=== PATIENT | female | born 1990 | race Two or more races ===

== ENCOUNTER 2025-03-17 13:08 | Outpatient (AMB) | payer MEDICAID, SELFPAY ==
[2025-03-17 13:23] VITALS: BP 116/76; PULSE 90; RESP 18; TEMP 36.7; O2SAT 98; BMI 21.4
--- NOTE | 2025-03-17 13:23 | OBCLNT_ITS ---
Vital Signs 03/17/25 13:23 Height 1.65 m Height Method Stated Weight 58.57 kg Weight Measurement Method Standing Scale BMI 21.4 BP 116/76 Blood Pressure Source Automatic Cuff Blood Pressure Location Left Upper Arm Position Sitting Respiration 18 Pulse 90 Pulse Source Monitor Temp 98.0 F Temp Source Oral Pulse Oximetry (%) 98 Oxygen Delivery Method Room Air Allergies/Home Meds Allergies & Medications Allergies No Known Allergies Allergy (Verified 03/17/25 13:24) Medication Reconciliation No Known Home Medications 03/17/25 [History Confirmed 03/17/25] Intake Visit Data Collection New Patient or Established: New Patient (never been to [facility]) Reason for Visit:: INITIAL CARE Seen by Clinical Staff ONLY (RN/MA): No Bridge Attacher Required: No Do You Feel Safe at Home: Yes Authorities Contacted: N/A PCP or OBGYN visit in last 3 months: No Hx Now: Yes Are you currently on any form of Control: No Pain Present Currently: No Pain Scale Used: El-Zhang/Numerical Pain scale:: 0 Smoking Status Smoking Status: Never smoker Questionnaires Covid-19 Vaccine Questionnaire Has patient been vacinated for Covid-19 Have you been vacinated for Covid-19: Yes PHQ-9 PHQ-2 Over the last 2 weeks, how often have you been bothered by any of the following problems? 1. Little interest or pleasure in doing things: not at all 2. Feeling down, depressed, or hopeless: not at all Total score: 0 PHQ-9 3. Trouble falling or staying asleep, or sleeping too much: Not at all 4. Feeling tired or having little energy: Not at all 5. Poor appetite or overeating: Not at all 6. Feeling bad about yourself - or that you are a failure or have let yourself or your family down: Not at all 7. Trouble concentrating on things, such as reading the newspaper or watching television: Not at all 8. Moving or speaking so slowly that other people could have noticed? - Or the opposite - being so fidgety or restless that you have been moving around a lot more than usual: not at all 9. Thoughts that you would be better off or of hurting yourself in some way: Not at all Total score: 0 Source: Developed by Drs. Mihai LIva Powell Kurt Kroenke and colleagues, with an educational jeannine from [employer]. Depression screen completed yes Social History Living Situation History Marital Status: Lives With: Children Housing: House Housing Other:: Has 17 and 13 year old girls Tobacco History Smoking Status: Never smoker Second Hand Smoke Exposure: No Alcohol History Alcohol Intake: Never Substance Use History Substance Use: +MJ stopped with + test Domestic Abuse History Do You Feel Safe at Home: Yes History of Present Illness HPI Narrative The patient is a 34 y/o who presents for a new OB visit. Her daughters are 17 and 13 years old. 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 Denies complications 06/2012 female 7 lbs 14 oz at [place]. Denies complications Other Relevant History: Denies chronic medical problems including HTN, DM or Asthma OB Initial Visit OB Flowsheet OB Flowsheet Initial Weight: Not Recorded Date -?-?-?-?-?-?-?-?-?-?-?-?- EGA Weight BP Alb Glu CTX Pres Fundal ht FHR Mov Dilation Station Effacement Hx Notes Visit Note 03/17/25 -?-?-?--?-?-?-?-?-?-?-?-?- 19w 0d 58.57 kg 116/76 20 145 active +FM No UCs or LOF Came from [facility] with only a proof of . Ordered all C labs, NIPT and Level II US Menstrual History Menstrual reliability: definite Flow: normal Menstrual regularity: regular Monthly: Yes Age at menarche: 11 On control pills at conception: No Date of positive home test: 12/10/23 Associated symptoms (LMP): Reports fatigue and breast tenderness OB History : 3 Para: 2 # of Living Children: 2 Delivery History 1st : date: 05/15/08 sex: female Gestational age at delivery (weeks): 40 Delivery type: vaginal weight (lbs): 3118.448 g Delivery complications: NONE History of depression before or after : No 2nd : date: 07/18/12 sex: female Gestational age at delivery (weeks): 39 Delivery type: vaginal weight (lbs): 3572.04 g Delivery complications: NONE History of depression before or after : No Infection History & Risk Evaluation History of STDs: none Genetic Screening & History Genetic Screening/Teratology Counseling - Includes patient, baby's father, or anyone in either family with: 1. Patient's age 35 years or older as of estimated date of delivery: Yes 2. Thalassemia (Ecuadorean, Eritrean, Mediterranean, or Background); MCV less than 80: No 3. Neural Tube Defect (Meningomyelocele, Spina Bifida, or Anencephaly): No 4. Congenital Heart Defect: No 5. Down Syndrome: No 6. Abraham-Sachs (Ashkenazi Tenriism, Cajun, [place]): No 7. Wade Disease (Ashkenazi Tenriism): No 8. Familial Dysautonomia (Ashkenazi Tenriism): No 9. Sickle Cell Disease or Trait (): No 10. Hemophilia or other blood disorders: No 11. Muscular Dystrophy: No 12. Cystic Fibrosis: No 13. Qi's Chorea: No 14. Mental Retardation/Autism: No 15. Other inherited genetic or chromosomal disorder: No 16. Maternal Metabolic Disorder (EG,TYPE 1 Diabetes, PKU): No 17. Patient or baby's father had a child with defects not listed above: No 18. Recurrent loss or a stillbirth: No 19. Medications (including supplements, vitamins, herbs or otc drugs)/illicit/recreational drugs/alcohol since last menstrual period: No 20. Any other: No Infection History 1. Live with someone with TB or exposed to TB: No 2. Rash or viral illness since last menstrual period: No 3. Hepatitis B,C: No Other (see comments) Source: [employer] Review of Systems Constitutional Constitutional: Reports fatigue Endocrine Endocrine: Reports fatigue Office Procedures OB Clinic LOC & Office Proc's Nursing/Assessment Patient Status: Initial/New Patient OB Clinic Nursing Assessment: Medication Reconciliation, Update PMH in EMR and Vital Signs OB Clinic Coordination of Care: AMA, Complex Care and Chronic Disease 1-5, Consent,records obtained, informed consent, Education Simp Pt/Fam, Lab and Imaging orders, Results/Orders obtained and Staff clarify orders Special Needs: Heart tones New Patient Charge New Patient Point Assignment: [id number] New Patient Point Charge: CERTIFIED MEDICAL BILLER Level 4 ([id number]) Assessment & Plan Diagnosis / Problem List (1) : Status: Acute Qualifiers: Weeks of gestation: 19 weeks Qualified Code(s): Z3A.19 - 19 weeks gestation of Plan: NIPT and all PNC labs ordered. Level II US ordered (2) Advanced maternal age (AMA) in : Status: Acute Assessment and Plan: Baby ASA, Level II US and NIPT
== END 2025-03-17 13:40 | disposition home or self-care (01) ==
LOC: HODSOBC 13:08
PROVIDERS: PCP Obstetrics & Gynecology; Referring Provider Obstetrics & Gynecology; Supervising Provider Obstetrics & Gynecology; Visit Provider Obstetrics & Gynecology
DX: O09.522 Supervision of elderly multigravida, second trimester (principal); Z3A.19 19 weeks gestation of pregnancy
CPT/HCPCS: 99204; G0463

== ENCOUNTER 2025-04-14 09:17 | Outpatient (AMB) | payer MEDICAID, SELFPAY ==
[2025-04-14 09:21] VITALS: BP 97/63; PULSE 81; RESP 16; TEMP 36.6; O2SAT 99; BMI 35.6
--- NOTE | 2025-04-14 09:21 | OBCLNT_ITS ---
Vital Signs 04/14/25 09:21 Height 1.65 m Height Method Stated Weight 97.182 kg Weight Measurement Method Standing Scale BMI 35.6 BP 97/63 Blood Pressure Source Automatic Cuff Blood Pressure Location Left Upper Arm Position Sitting Respiration 16 Pulse 81 Pulse Source Monitor Temp 97.8 F Temp Source Oral Pulse Oximetry (%) 99 Oxygen Delivery Method Room Air Allergies/Home Meds Allergies & Medications Allergies No Known Allergies Allergy (Verified 04/14/25 09:32) Medication Reconciliation No Known Home Medications 03/17/25 [History Confirmed 04/14/25] Intake Visit Data Collection New Patient or Established: Established Patient (seen at [facility] within 3 years) Reason for Visit:: CARE Seen by Clinical Staff ONLY (RN/MA): No Test Fixture Designer Required: No Do You Feel Safe at Home: Yes Authorities Contacted: N/A PCP or OBGYN visit in last 3 months: Yes Hx Now: Yes Are you currently on any form of Control: No Pain Present Currently: No Pain Scale Used: El-Zhang/Numerical Pain scale:: 0 Smoking Status Smoking Status: Never smoker Questionnaires Covid-19 Vaccine Questionnaire Has patient been vacinated for Covid-19 Have you been vacinated for Covid-19: Yes PHQ-9 PHQ-2 Over the last 2 weeks, how often have you been bothered by any of the following problems? 1. Little interest or pleasure in doing things: not at all 2. Feeling down, depressed, or hopeless: not at all Total score: 0 PHQ-9 3. Trouble falling or staying asleep, or sleeping too much: Not at all 4. Feeling tired or having little energy: Not at all 5. Poor appetite or overeating: Not at all 6. Feeling bad about yourself - or that you are a failure or have let yourself or your family down: Not at all 7. Trouble concentrating on things, such as reading the newspaper or watching television: Not at all 8. Moving or speaking so slowly that other people could have noticed? - Or the opposite - being so fidgety or restless that you have been moving around a lot more than usual: not at all 9. Thoughts that you would be better off or of hurting yourself in some way: Not at all Total score: 0 Source: Developed by Iva FernandezW. Adan, Morris Montanez and colleagues, with an educational jeannine from [employer] 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 She is a new father the baby. He has 3 of his own children. Care OB Visit Log OB Flowsheet Initial Weight: Not Recorded Date -?-?-?-?-?-?-?-?-?-?-?-?- EGA Weight BP Alb Glu CTX Pres Fundal ht FHR Mov Dilation Station Effacement Hx Notes Visit Note 03/17/25 -?-?-?-?-?-?-?--?-?-?-?-?- 19w 0d 58.57 kg 116/76 20 145 active +FM No UCs or LOF Came from [facility] with only a proof of . Ordered all PNC labs, NIPT and Level II US 04/14/25 -?-?-?-?-?-?-?-?-?-?-?-?- 23w 0d 97.182 kg 97/63 active Reviewed all labs and NIPT with the patient. Need structural survey and this will be authorized. No vaginal bleeding, or loss of fluids good movement ISAAC Calculator Estimated Delivery Date Method Current WG Current Estimate 08/11/25 LMP (Certain) 23w 0d Expected Delivery Route/Plan -0-0-2 history of 11 and 15 years ago without complications. Delivered in [place]. 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 Visit Date: 03/17/25 Last Updated by: Luisa Cage (OB Clinic)MD AMA: Baby ASA, offered NIPT and will order Level II US Office Procedures OB Clinic LOC & Office Proc's Nursing/Assessment Patient Status: Established Patient OB Clinic Nursing Assessment: Medication Reconciliation, Update PMH in EMR and Vital Signs OB Clinic Coordination of Care: AMA, Complex Care and Chronic Disease 1-5, Consent,records obtained, informed consent, Education Simp Pt/Fam, Lab and Imaging orders, Results/Orders obtained and Staff clarify orders Special Needs: Heart tones Established Patient Charge Established Patient Point Assignment: 155 Established Patient Point Charge: EP Level 4 (120-155) Assessment & Plan Diagnosis / Problem List (1) Advanced maternal age (AMA) in : Status: Acute Plan: NIPT normal. Authorize for level 2 ultrasound. (2) : Status: Acute Qualifiers: Weeks of gestation: 23 weeks Qualified Code(s): Z3A.23 - 23 weeks gestation of Additional Plan Follow Up: 4 Weeks
== END 2025-04-14 09:59 | disposition home or self-care (01) ==
LOC: HODSOBC 09:17
PROVIDERS: Supervising Provider Obstetrics & Gynecology; Visit Provider Obstetrics & Gynecology
DX: O09.522 Supervision of elderly multigravida, second trimester (principal); Z3A.23 23 weeks gestation of pregnancy
CPT/HCPCS: 99214; G0463

== ENCOUNTER 2025-05-16 09:38 | Outpatient (AMB) | payer MEDICAID, SELFPAY ==
[2025-05-16 09:56] VITALS: BP 122/78; PULSE 90; RESP 16; TEMP 37.1; O2SAT 98; BMI 24.8
--- NOTE | 2025-05-16 09:56 | AMB.OBVISIT ---
Vital Signs 05/16/25 09:56 Height 1.65 m Height Method Stated Weight 67.642 kg Weight Measurement Method Standing Scale BMI 24.8 BP 122/78 Blood Pressure Source Automatic Cuff Blood Pressure Location Left Upper Arm Position Sitting Respiration 16 Pulse 90 Pulse Source Monitor Temp 98.7 F Temp Source Oral Pulse Oximetry (%) 98 Oxygen Delivery Method Room Air Allergies/Home Meds Allergies & Medications Allergies No Known Allergies Allergy (Verified 05/16/25 09:57) Medication Reconciliation No Known Home Medications 03/17/25 [History Confirmed 05/16/25] Intake Visit Data Collection New Patient or Established: Established Patient (seen at [facility] within 3 years) Reason for Visit:: OBC Seen by Clinical Staff ONLY (RN/MA): No 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 1. Little interest or pleasure in doing things: not at all 2. Feeling down, depressed, or hopeless: not at all Total score: 0 PHQ-9 3. Trouble falling or staying asleep, or sleeping too much: Not at all 4. Feeling tired or having little energy: Not at all 5. Poor appetite or overeating: Not at all 6. Feeling bad about yourself - or that you are a failure or have let yourself or your family down: Not at all 7. Trouble concentrating on things, such as reading the newspaper or watching television: Not at all 8. Moving or speaking so slowly that other people could have noticed? - Or the opposite - being so fidgety or restless that you have been moving around a lot more than usual: not at all 9. Thoughts that you would be better off or of hurting yourself in some way: Not at all Total score: 0 If you checked off any problems, how difficult have these problems made it for you to do your work, take care of things at home, or get along with other people?: not difficult at all Source: Developed by Drs. Mihai Win, Iva Arellano, Morris Montanez and colleagues, with an educational jeannine from [employer]. Depression screen completed yes Social History Living Situation History Lives With: Children Housing: House Housing Other:: Has 17 and 13 year old girls/ FOB has 3 kids Tobacco History Smoking Status: Never smoker Second Hand Smoke Exposure: No Alcohol History Alcohol Intake: Never Substance Use History Substance Use: +MJ stopped with + test Domestic Abuse History Do You Feel Safe at Home: Yes Care OB Visit Log OB Flowsheet Initial Weight: Not Recorded Date <del>?</del> EGA Weight BP Alb Glu CTX Pres Fundal ht FHR Mov Dilation Station Effacement Hx Notes Visit Note 03/17/25 <del>?</del> 19w 0d 58.57 kg 116/76 20 145 active +FM No UCs or LOF Came from [facility] with only a proof of . Ordered all PNC labs, NIPT and Level II US 04/14/25 <del>?</del> 23w 0d 97.182 kg 97/63 active Reviewed all labs and NIPT with the patient. Need structural survey and this will be authorized. No vaginal bleeding, or loss of fluids good movement 05/16/25 <del>?</del> 27w 4d 67.642 kg 122/78 occasional 28 149 active Patient reports good movement. She reports frequent cramping and pressure while at work. No vaginal bleeding or loss of fluids. Patient had a note for decreased lifting and bending and she still having pressure and cramping at work. Off work at this time. ISAAC Calculator Estimated Delivery Date Method Current WG Current Estimate 08/11/25 LMP (Certain) 27w 4d Expected Delivery Route/Plan -0-0-2 history of 11 and 15 years ago without complications. Delivered in [place]. New father of baby who has 3 children, 2 boys and a girl. 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 She is having cramping and pressure at work. Awaiting level 2 ultrasound at [facility] 05/22/2025. Labs reviewed with a normal glucose RPR is negative normal hemoglobin. 1 hour glucose was 129. 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 Visit Date: 03/17/25 Last Updated by: Luisa Cage (OB Clinic)MD AMA: Baby ASA, offered NIPT and will order Level II US Office Procedures OB Clinic LOC & Office Proc's Nursing/Assessment Patient Status: Established Patient OB Clinic Nursing Assessment: Medication Reconciliation, Update PMH in EMR and Vital Signs OB Clinic Coordination of Care: Education Complex Pt/Fam, Consent,records obtained, informed consent, Education Simp Pt/Fam, Lab and Imaging orders, Results/Orders obtained and Staff clarify orders Special Needs: Heart tones and Language special needs Established Patient Charge Established Patient Point Assignment: 130 Established Patient Point Charge: EP Level 4 (120-155) Assessment & Plan Diagnosis / Problem List (1) Advanced maternal age (AMA) in : Status: Acute Plan: For level 2 ultrasound. Normal NIPT. (2) : Status: Acute Qualifiers: Weeks of gestation: 28 weeks Qualified Code(s): Z3A.28 - 28 weeks gestation of
== END 2025-05-16 10:14 | disposition home or self-care (01) ==
LOC: HODSOBC 09:38
PROVIDERS: Supervising Provider Obstetrics & Gynecology; Visit Provider Obstetrics & Gynecology
DX: O09.522 Supervision of elderly multigravida, second trimester (principal); Z3A.27 27 weeks gestation of pregnancy
CPT/HCPCS: 99214; G0463

== ENCOUNTER 2025-06-13 10:41 | Outpatient (AMB) | payer MEDICAID, SELFPAY ==
[2025-06-13 11:04] VITALS: BP 131/78; PULSE 98; RESP 18; TEMP 36.2; O2SAT 98; BMI 25.2
--- NOTE | 2025-06-13 11:04 | OBCLNT_ITS ---
Vital Signs 06/13/25 11:04 Height 1.65 m Height Method Stated Weight 68.549 kg Weight Measurement Method Standing Scale BMI 25.2 BP 131/78 H Blood Pressure Source Automatic Cuff Blood Pressure Location Left Upper Arm Position Sitting Respiration 18 Pulse 98 Pulse Source Monitor Temp 97.2 F Temp Source Oral Pulse Oximetry (%) 98 Oxygen Delivery Method Room Air Allergies/Home Meds Allergies & Medications Allergies No Known Allergies Allergy (Verified 06/13/25 11:05) Medication Reconciliation No Known Home Medications 03/17/25 [History Confirmed 06/13/25] Intake Visit Data Collection New Patient or Established: Established Patient (seen at [facility] within 3 years) Reason for Visit:: OBC Seen by Clinical Staff ONLY (RN/MA): No Tearoom Host/Hostess Required: No Do You Feel Safe at Home: Yes Authorities Contacted: N/A PCP or OBGYN visit in last 3 months: Yes Date of Last PCP or OBGYN visit: 05/16/25 Hx Now: Yes Are you currently on any form of Control: No Pain Present Currently: No Pain Scale Used: El-Zhang/Numerical Pain scale:: 0 Smoking Status Smoking Status: Never smoker Questionnaires Covid-19 Vaccine Questionnaire Has patient been vacinated for Covid-19 Have you been vacinated for Covid-19: Yes PHQ-9 PHQ-2 Over the last 2 weeks, how often have you been bothered by any of the following problems? 1. Little interest or pleasure in doing things: not at all 2. Feeling down, depressed, or hopeless: not at all Total score: 0 PHQ-9 3. Trouble falling or staying asleep, or sleeping too much: Not at all 4. Feeling tired or having little energy: Not at all 5. Poor appetite or overeating: Not at all 6. Feeling bad about yourself - or that you are a failure or have let yourself or your family down: Not at all 7. Trouble concentrating on things, such as reading the newspaper or watching television: Not at all 8. Moving or speaking so slowly that other people could have noticed? - Or the opposite - being so fidgety or restless that you have been moving around a lot more than usual: not at all 9. Thoughts that you would be better off or of hurting yourself in some way: Not at all Total score: 0 If you checked off any problems, how difficult have these problems made it for you to do your work, take care of things at home, or get along with other people?: not difficult at all Source: Developed by Drs. Mihai Win, Iva Arellano, Morris Montanez and colleagues, with an educational jeannine from [employer]. Depression screen completed yes Social History Living Situation History Marital Status: Single Lives With: Children Housing: House Housing Other:: Has 17 and 13 year old girls/ FOB has 3 kids Tobacco History Smoking Status: Never smoker Second Hand Smoke Exposure: No Alcohol History Alcohol Intake: Never Substance Use History Substance Use: +MJ stopped with + test Domestic Abuse History Do You Feel Safe at Home: Yes Care OB Visit Log OB Flowsheet Initial Weight: Not Recorded Date -?-?-?-?-?-?-?-?-?-?-?-?- EGA Weight BP Alb Glu CTX Pres Fundal ht FHR Mov Dilation Station Effacement Hx Notes Visit Note 03/17/25 -?-?-?-?-?-?-?-?-?-?-?-?- 19w 0d 58.57 kg 116/76 20 145 active +FM No UCs or LOF Came from [facility] with only a proof of . Ordered all PNC labs, NIPT and Level II US 04/14/25 -?-?-?-?-?-?-?-?-?-?-?-?- 23w 0d 97.182 kg 97/63 active Reviewed all labs and NIPT with the patient. Need structural survey and this will be authorized. No vaginal bleeding, or loss of fluids good movement 05/16/25 -?-?-?-?-?-?-?-?-?-?-?-?- 27w 4d 67.642 kg 122/78 occasional 28 149 active Patient reports good movement. She reports frequent cramping and pressure while at work. No vaginal bleeding or loss of fluids. Patient had a note for decreased lifting and bending and she still having pressure and cramping at work. Off work at this time. 06/13/25 -?-?-?-?-?-?-?-?-?-?-?-?- 31w 4d 68.549 kg 131/78 occasional 32 145 active Good motion no contractions or loss of fluids. Present with father the baby. Patient is off work doing well. ISAAC Calculator Estimated Delivery Date Method Current WG Current Estimate 08/11/25 LMP (Certain) 31w 5d Other Estimates 08/10/25 Ultrasound #1 31w 6d Expected Delivery Route/Plan -0-0-2 history of 13 and 17 years ago without complications. Delivered in [place]. New father of baby who has 3 children, 2 boys and a girl. Specific Issue/Plans AMA on baby aspirin labs at [facility]: O+/antibody screen negative/rubella immune/RPR nonreactive/hepatitis B surface antigen negative/gonorrhea negative/chlamydia negative/urine culture negative/HIV negative/SMA negative/CF negative/hemoglobin A1c 5/hemoglobin 12/NIPT 46 XY Normal level 2 ultrasound 05/22/2025 [facility] Normal 1 hour glucose 129 Notes Visit Date: 06/13/25 Last Updated by: Luisa Cage (OB Clinic)MD Patient has a 17-year-old and 13-year-old daughter. Her new has 3 children. Reviewed normal anatomy scan from [facility] from 05/22/2025 with patient and her . 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 She is having cramping and pressure at work. Awaiting level 2 ultrasound at [facility] 05/22/2025. Labs reviewed with a normal glucose RPR is negative normal hemoglobin. 1 hour glucose was 129. 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 Visit Date: 03/17/25 Last Updated by: Luisa Fernández[facility] Clinic)MD AMA: Baby ASA, offered NIPT and will order Level II US Office Procedures OBC Clinic LOC & Office Proc's Nursing/Assessment Patient Status: Established Patient OB Clinic Nursing Assessment: Medication Reconciliation, Update PMH in EMR and Vital Signs OB Clinic Coordination of Care: Consent,records obtained, informed consent, Education Simp Pt/Fam and Staff clarify orders Special Needs: Heart tones Established Patient Charge Established Patient Point Assignment: 90 Established Patient Point Charge: EP Level 3 (80-115) Assessment & Plan Diagnosis / Problem List (1) Advanced maternal age (AMA) in : Status: Acute Plan: On baby aspirin. Normal NIPT. Normal level 2 ultrasound. (2) : Status: Acute Qualifiers: Weeks of gestation: 32 weeks Qualified Code(s): Z3A.32 - 32 weeks gestation of
== END 2025-06-13 12:03 | disposition home or self-care (01) ==
LOC: HODSOBC 10:41
PROVIDERS: Supervising Provider Obstetrics & Gynecology; Visit Provider Obstetrics & Gynecology
DX: O09.523 Supervision of elderly multigravida, third trimester (principal); Z3A.31 31 weeks gestation of pregnancy
CPT/HCPCS: 99213; G0463

== ENCOUNTER 2025-07-01 09:15 | Outpatient (AMB) | payer MEDICAID, SELFPAY ==
--- NOTE | 2025-07-01 09:18 | OBCLNT_ITS ---
Vital Signs 07/01/25 09:19 Height 1.65 m Height Method Stated Weight 72.178 kg Weight Measurement Method Standing Scale BMI 26.5 BP 117/85 H Blood Pressure Source Automatic Cuff Blood Pressure Location Left Upper Arm Position Sitting Respiration 14 Pulse 77 Pulse Source Monitor Temp 97.8 F Temp Source Oral Pulse Oximetry (%) 99 Oxygen Delivery Method Room Air Allergies/Home Meds Allergies & Medications Allergies No Known Allergies Allergy (Verified 07/01/25 09:28) Medication Reconciliation No Known Home Medications 03/17/25 [History Confirmed 07/01/25] Intake Visit Data Collection New Patient or Established: Established Patient (seen at [facility] within 3 years) Reason for Visit:: CARE Seen by Clinical Staff ONLY (RN/MA): No Food Aide Required: No Do You Feel Safe at Home: Yes Authorities Contacted: N/A PCP or OBGYN visit in last 3 months: Yes Hx Now: Yes Are you currently on any form of Control: No Pain Present Currently: No Pain Scale Used: El-Zhang/Numerical Pain scale:: 0 Smoking Status Smoking Status: Never smoker Immunizations Flu Vaccine in the Last 12 Months: Yes Flu Vaccine Exclusion Criteria: Already Received Questionnaires Covid-19 Vaccine Questionnaire Has patient been vacinated for Covid-19 Have you been vacinated for Covid-19: Yes PHQ-9 PHQ-2 Over the last 2 weeks, how often have you been bothered by any of the following problems? 1. Little interest or pleasure in doing things: not at all 2. Feeling down, depressed, or hopeless: not at all Total score: 0 PHQ-9 3. Trouble falling or staying asleep, or sleeping too much: Not at all 4. Feeling tired or having little energy: Not at all 5. Poor appetite or overeating: Not at all 6. Feeling bad about yourself - or that you are a failure or have let yourself or your family down: Not at all 7. Trouble concentrating on things, such as reading the newspaper or watching television: Not at all 8. Moving or speaking so slowly that other people could have noticed? - Or the opposite - being so fidgety or restless that you have been moving around a lot more than usual: not at all 9. Thoughts that you would be better off or of hurting yourself in some way: Not at all Total score: 0 Source: Developed by Drs. Mihai Win, Iva Arellano, Morris Montanez and colleagues, with an educational jeannine from [employer]. Depression screen completed yes Social History Living Situation History Lives With: Children Housing: House Housing Other:: Has 17 and 13 year old girls/ FOB has 3 kids Tobacco History Smoking Status: Never smoker Second Hand Smoke Exposure: No Alcohol History Alcohol Intake: Never Substance Use History Substance Use: +MJ stopped with + test Domestic Abuse History Do You Feel Safe at Home: Yes Care OB Visit Log OB Flowsheet Initial Weight: Not Recorded Date -?-?-?-?-?-?-?-?-?-?-?-?- EGA Weight BP Alb Glu CTX Pres Fundal ht FHR Mov Dilation Station Effacement Hx Notes Visit Note 03/17/25 -?-?-?-?-?-?-?-?-?-?-?-?- 19w 0d 58.57 kg 116/76 20 145 active +FM No UCs or LOF Came from [facility] with only a proof of . Ordered all PNC labs, NIPT and Level II US 04/14/25 -?-?-?-?-?-?-?-?-?-?-?-?- 23w 0d 97.182 kg 97/63 active Reviewed all labs and NIPT with the patient. Need structural survey and this will be authorized. No vaginal bleeding, or loss of fluids good movement 05/16/25 -?-?-?-?-?-?-?-?-?-?-?-?- 27w 4d 67.642 kg 122/78 occasional 28 149 active Patient reports good movement. She reports frequent cramping and pressure while at work. No vaginal bleeding or loss of fluids. Patient had a note for decreased lifting and bending and she still having pressure and cramping at work. Off work at this time. 06/13/25 -?-?-?-?-?-?-?-?-?-?-?-?- 31w 4d 68.549 kg 131/78 occasional 32 145 active Good motion no contractions or loss of fluids. Present with father the baby. Patient is off work doing well. 07/01/25 -?-?-?-?-?-?-?-?-?-?-?-?- 34w 1d 72.178 kg 117/85 occasional cephalic 34 145 active Good movement. Denies contractions, leaking, bleeding Follow-up [facility] appointment July 08. Discussed kick count. labor precautions. Increase fluids. Continue vitamins. Patient declined Tdap ISAAC Calculator Estimated Delivery Date Method Current WG Current Estimate 08/11/25 LMP (Certain) 34w 1d Other Estimates 08/10/25 Ultrasound #1 34w 2d Expected Delivery Route/Plan -0-0-2 history of 13 and 17 years ago without complications. Shamika garcia in [place]. New father of baby who has 3 children, 2 boys and a girl. Specific Issue/Plans AMA on baby aspirin labs at [facility]: O+/antibody screen negative/rubella immune/RPR nonreactive/hepatitis B surface antigen negative/gonorrhea negative/chlamydia negative/urine culture negative/HIV negative/SMA negative/CF negative/hemoglobin A1c 5/hemoglobin 12/NIPT 46 XY Normal level 2 ultrasound 05/22/2025 [facility] Normal 1 hour glucose 129 Notes Visit Date: 07/01/25 Last Updated by: Nirali Ureña CNM OB panel: O+,abs-, rpr;;nr, rub imm, hbsag-, hiv-, gc/ct- 1 hr gtt wnl, HC-. NIPT/carrier screen- Visit Date: 06/13/25 Last Updated by: Luisa Cage (OB Clinic)MD Patient has a 17-year-old and 13-year-old daughter. Her new has 3 children. Reviewed normal anatomy scan from [facility] from 05/22/2025 with patient and her . 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 She is having cramping and pressure at work. Awaiting level 2 ultrasound at [facility] 05/22/2025. Labs reviewed with a normal glucose RPR is negative normal hemoglobin. 1 hour glucose was 129. 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 Visit Date: 03/17/25 Last Updated by: Luisa Cage (OB Clinic)MD AMA: Baby ASA, offered NIPT and will order Level II US Office Procedures OBC Clinic LOC & Office Proc's Nursing/Assessment Patient Status: Established Patient OB Clinic Nursing Assessment: Medication Reconciliation, Update PMH in EMR and Vital Signs OB Clinic Coordination of Care: Complex Care and Chronic Disease 1-5, Consent,records obtained, informed consent, Education Simp Pt/Fam, 1 Ins Authorization, Lab and Imaging orders, Results/Orders obtained and Staff clarify orders Special Needs: Heart tones Established Patient Charge Established Patient Point Assignment: 150 Established Patient Point Charge: EP Level 4 (120-155) Assessment & Plan Diagnosis / Problem List (1) Advanced maternal age (AMA) in : Status: Acute (2) Encounter for supervision of high risk in third trimester, antepartum: Status: Acute Plan Discussed labor precautions. Kick counts twice a day. Reviewed signs and symptoms of labor. Follow-up [facility] July 08. Return in 2 weeks OB check and GBS Additional Plan Follow Up: 2 Weeks (obc/gbs)
[2025-07-01 09:19] VITALS: BP 117/85; PULSE 77; RESP 14; TEMP 36.6; O2SAT 99; BMI 26.5
== END 2025-07-01 10:04 | disposition home or self-care (01) ==
LOC: HODSOBC 09:15
PROVIDERS: Supervising Provider Advanced Practice Midwife; Visit Provider Advanced Practice Midwife
DX: O09.523 Supervision of elderly multigravida, third trimester (principal); Z3A.34 34 weeks gestation of pregnancy; Z28.21 Immunization not carried out because of patient refusal
CPT/HCPCS: 99214; G0463

== ENCOUNTER 2025-07-18 10:36 | Outpatient (AMB) | payer MEDICAID, SELFPAY ==
[2025-07-18 10:57] VITALS: BP 123/89; PULSE 86; RESP 18; TEMP 36.9; O2SAT 98; BMI 27.1
--- NOTE | 2025-07-18 10:57 | OBCLNT_ITS ---
Vital Signs 07/18/25 10:57 Height 1.65 m Height Method Stated Weight 73.992 kg Weight Measurement Method Standing Scale BMI 27.1 BP 123/89 H Blood Pressure Source Automatic Cuff Blood Pressure Location Right Upper Arm Position Sitting Respiration 18 Pulse 86 Pulse Source Monitor Temp 98.4 F Temp Source Temporal Artery Scan Pulse Oximetry (%) 98 Oxygen Delivery Method Room Air Allergies/Home Meds Allergies & Medications Allergies No Known Allergies Allergy (Verified 07/18/25 10:58) Medication Reconciliation No Known Home Medications 03/17/25 [History Confirmed 07/18/25] Immunizations Immunizations Flu Vaccine in the Last 12 Months: No Flu Vaccine Exclusion Criteria: Refused by Patient Care OB Visit Log OB Flowsheet Initial Weight: Not Recorded Date -?-?-?-?-?-?-?-?-?-?-?-?- EGA Weight BP Alb Glu CTX Pres Fundal ht FHR Mov Dilation Station Effacement Hx Notes Visit Note 03/17/25 -?-?-?-?-?-?-?-?-?-?-?-?- 19w 0d 58.57 kg 116/76 20 145 active +FM No UCs or LOF Came from [facility] with only a proof of . Ordered all PNC labs, NIPT and Level II US 04/14/25 -?-?-?-?-?-?-?-?-?-?-?-?- 23w 0d 97.182 kg 97/63 active Reviewed all labs and NIPT with the patient. Need structural survey and this will be authorized. No vaginal bleeding, or loss of fluids good movement 05/16/25 -?-?-?-?-?-?-?-?-?-?-?-?- 27w 4d 67.642 kg 122/78 occasional 28 149 active Patient reports good movement. She reports frequent cramping and pressure while at work. No vaginal bleeding or loss of fluids. Patient had a note for decreased lifting and bending and she still having pressure and cramping at work. Off work at this time. 06/13/25 -?-?-?-?-?-?-?-?-?-?-?-?- 31w 4d 68.549 kg 131/78 occasional 32 145 active Good motion no contractions or loss of fluids. Present with father the baby. Patient is off work doing well. 07/01/25 -?-?-?-?-?-?-?-?-?-?-?-?- 34w 1d 72.178 kg 117/85 occasional cephalic 34 145 active Good movement. Denies contractions, leaking, bleeding Follow-up [facility] appointment July 08. Discussed kick count. labor precautions. Increase fluids. Continue vitamins. Patient declined Tdap 07/18/25 -?-?-?-?-?-?-?-?-?-?-?-?- 36w 4d 73.992 kg 123/89 occasional cephalic 36 145 active Fetus active. Denies leaking, bleeding, contractions GBS today. Discussed labor precautions. Kick count reviewed. Discussed danger signs symptoms ER precautions. Return in a week OB check ISAAC Calculator Estimated Delivery Date Method Current WG Current Estimate 08/11/25 LMP (Certain) 36w 4d Other Estimates 08/10/25 Ultrasound #1 36w 5d 08/11/25 Ultrasound #2 36w 4d 08/11/25 Manual 36w 4d final isaac: 07/28 01/19, EFW 50% Expected Delivery Route/Plan -0-0-2 history of 13 and 17 years ago without complications. Delivered in [place]. New father of baby who has 3 children, 2 boys and a girl. Specific Issue/Plans AMA on baby aspirin labs at [facility]: O+/antibody screen negative/rubella immune/RPR nonreac tive/hepatitis B surface antigen negative/gonorrhea negative/chlamydia negative/urine culture negative/HIV negative/SMA negative/CF negative/hemoglobin A1c 5/hemoglobin 12/NIPT 46 XY Normal level 2 ultrasound 05/22/2025 [facility] Normal 1 hour glucose 129 Notes Visit Date: 07/01/25 Last Updated by: Nirali Ureña CNM OB panel: O+,abs-, rpr;;nr, rub imm, hbsag-, hiv-, gc/ct- 1 hr gtt wnl, HC-. NIPT/carrier screen- Visit Date: 06/13/25 Last Updated by: Luisa Cage (OB Clinic)MD Patient has a 17-year-old and 13-year-old daughter. Her new has 3 children. Reviewed normal anatomy scan from [facility] from 05/22/2025 with patient and her . 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 She is having cramping and pressure at work. Awaiting level [address] [facility] 05/22/2025. Labs reviewed with a normal glucose RPR is negative normal hemoglobin. 1 hour glucose was 129. 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 Visit Date: 03/17/25 Last Updated by: Luisa Cage (OB Clinic)MD AMA: Baby ASA, offered NIPT and will order Level II US Office Procedures OBC Clinic LOC & Office Proc's Nursing/Assessment Patient Status: Established Patient OB Clinic Nursing Assessment: Medication Reconciliation, Update PMH in EMR and Vital Signs OB Clinic Coordination of Care: Complex Care and Chronic Disease 1-5, Education Complex Pt/Fam, Consent,records obtained, informed consent, Lab and Imaging orders, Results/Orders obtained and Staff clarify orders Special Needs: Heart tones Miscellaneous Interventions: Culture Specimen Collection Established Patient Charge Established Patient Point Assignment: 155 Established Patient Point Charge: EP Level 4 (120-155) Assessment & Plan Diagnosis / Problem List (1) Encounter for supervision of high risk in third trimester, antepartum: Status: Acute Plan GBS today. Discussed labor precautions. Kick counts twice a day. Discussed danger signs symptoms. Return week OB check Additional Plan Follow Up: 1 Week (obc)
== END 2025-07-18 11:10 | disposition home or self-care (01) ==
LOC: HODSOBC 10:36
PROVIDERS: Supervising Provider Advanced Practice Midwife; Visit Provider Advanced Practice Midwife
DX: O09.523 Supervision of elderly multigravida, third trimester (principal); Z3A.36 36 weeks gestation of pregnancy; Z36.85 Encounter for antenatal screening for Streptococcus B; Z28.21 Immunization not carried out because of patient refusal
CPT/HCPCS: 99214; G0463

== ENCOUNTER 2025-07-28 09:58 | Outpatient (AMB) | payer MEDICAID, SELFPAY ==
--- NOTE | 2025-07-28 10:00 | AMB.OBPNC ---
Vital Signs 07/28/25 10:07 Height 1.65 m Height Method Stated Weight 75.977 kg Weight Measurement Method Standing Scale BMI 27.8 BP 142/93 H Blood Pressure Source Automatic Cuff Blood Pressure Location Left Upper Arm Position Sitting Respiration 18 Pulse 80 Pulse Source Monitor Temp 98.2 F Temp Source Oral Pulse Oximetry (%) 98 Oxygen Delivery Method Room Air Allergies/Home Meds Allergies & Medications Allergies No Known Allergies Allergy (Verified 07/28/25 10:00) Medication Reconciliation No Known Home Medications 03/17/25 [History Confirmed 07/28/25] Immunizations Immunizations Flu Vaccine in the Last 12 Months: No Flu Vaccine Exclusion Criteria: No Exclusion Criteria Care OB Visit Log OB Flowsheet Initial Weight: Not Recorded Date <del>?</del> EGA Weight BP Alb Glu CTX Pres Fundal ht FHR Mov Dilation Station Effacement Hx Notes Visit Note 03/17/25 <del>?</del> 19w 0d 58.57 kg 116/76 20 145 active +FM No UCs or LOF Came from [facility] with only a proof of . Ordered all PNC labs, NIPT and Level II US 04/14/25 <del>?</del> 23w 0d 97.182 kg 97/63 active Reviewed all labs and NIPT with the patient. Need structural survey and this will be authorized. No vaginal bleeding, or loss of fluids good movement 05/16/25 <del>?</del> 27w 4d 67.642 kg 122/78 occasional 28 149 active Patient reports good movement. She reports frequent cramping and pressure while at work. No vaginal bleeding or loss of fluids. Patient had a note for decreased lifting and bending and she still having pressure and cramping at work. Off work at this time. 06/13/25 <del>?</del> 31w 4d 68.549 kg 131/78 occasional 32 145 active Good motion no contractions or loss of fluids. Present with father the baby. Patient is off work doing well. 07/01/25 <del>?</del> 34w 1d 72.178 kg 117/85 occasional cephalic 34 145 active Good movement. Denies contractions, leaking, bleeding Follow-up [facility] appointment July 08. Discussed kick count. labor precautions. Increase fluids. Continue vitamins. Patient declined Tdap 07/18/25 <del>?</del> 36w 4d 73.992 kg 123/89 occasional cephalic 36 145 active Fetus active. Denies leaking, bleeding, contractions GBS today. Discussed labor precautions. Kick count reviewed. Discussed danger signs symptoms ER precautions. Return in a week OB check 07/28/25 <del>?</del> 38w 0d 75.977 kg 142/93 occasional cephalic 38 145 active Reports good movement. Denies leaking, bleeding, contractions. Denies headache, blurred vision, epigastric pain. Reflexes were 2+ no clonus. Protein in the urine was negative and negative for nitrites Discussed PIH signs symptoms and precautions. Check blood pressure. Discussed labor precautions and kick count. I sent patient to labor and delivery for PIH workup. Return in week OB check ISAAC Calculator Estimated Delivery Date Method Current WG Current Estimate 08/11/25 LMP (Certain) 38w 0d Other Estimates 08/10/25 Ultrasound #1 38w 1d 08/11/25 Ultrasound #2 38w 0d 08/11/25 Manual 38w 0d final isaac: 08/11/25, EFW 50% Expected Delivery Route/Plan -0-0-2 history of 13 and 17 years ago without complications. Delivered in [place]. New father of baby who has 3 children, 2 boys and a girl. Specific Issue/Plans AMA on baby aspirin labs at [facility]: O+/antibody screen negative/rubella immune/RPR nonreactive/hepatitis B surface antigen negative/gonorrhea negative/chlamydia negative/urine culture negative/HIV negative/SMA negative/CF negative/hemoglobin A1c 5/hemoglobin 12/NIPT 46 XY Normal level 2 ultrasound 05/22/2025 [facility] Normal 1 hour glucose 129 Notes Visit Date: 07/28/25 Last Updated by: Nirali Ureña CNM GBS- 07/19/25 Visit Date: 07/01/25 Last Updated by: Nirali Ureña CNM OB panel: O+,abs-, rpr;;nr, rub imm, hbsag-, hiv-, gc/ct- 1 hr gtt wnl, HC-. NIPT/carrier screen- Visit Date: 06/13/25 Last Updated by: Luisa Cage (OB Clinic)MD Patient has a 17-year-old and 13-year-old daughter. Her new has 3 children. Reviewed normal anatomy scan from [facility] from 05/22/2025 with patient and her . 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 She is having cramping and pressure at work. Awaiting level 2 ultrasound at [facility] 05/22/2025. Labs reviewed with a normal glucose RPR is negative normal hemoglobin. 1 hour glucose was 129. 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 Visit Date: 03/17/25 Last Updated by: Luisa Cage (OB Clinic)MD AMA: Baby ASA, offered NIPT and will order Level II US Office Procedures OBC Clinic LOC & Office Proc's Nursing/Assessment Patient Status: Established Patient OB Clinic Nursing Assessment: Medication Reconciliation, Update PMH in EMR and Vital Signs OB Clinic Coordination of Care: Consent,records obtained, informed consent, Education Simp Pt/Fam, Lab and Imaging orders, Results/Orders obtained and Staff clarify orders Special Needs: Heart tones Established Patient Charge Established Patient Point Assignment: 110 Established Patient Point Charge: EP Level 3 (80-115) Assessment & Plan Diagnosis / Problem List (1) Encounter for supervision of high risk in third trimester, antepartum: Status: Acute Plan Patient to labor and delivery for PIH workup. Discussed labor precautions. Kick count twice a day. Discussed PIH precautions and symptoms. Return Wegovy check Additional Plan Follow Up: 1 Week (obc)
[2025-07-28 10:07] VITALS: BP 142/93; PULSE 80; RESP 18; TEMP 36.8; O2SAT 98; BMI 27.8
== END 2025-07-28 10:23 | disposition home or self-care (01) ==
LOC: HODSOBC 09:58
PROVIDERS: Supervising Provider Advanced Practice Midwife; Visit Provider Advanced Practice Midwife
DX: O09.523 Supervision of elderly multigravida, third trimester (principal); Z3A.38 38 weeks gestation of pregnancy
CPT/HCPCS: 99213; G0463

== ENCOUNTER 2025-07-28 10:45 | Observation (INO) | payer MEDICAID, SELFPAY ==
[2025-07-28 10:59] VITALS: BP 120/73; PULSE 87; RESP 18; RESP 99; TEMP 36.7; BMI 28.1
[2025-07-28 11:05] VITALS: BP 128/81; PULSE 97
[2025-07-28 11:07] VITALS: BP 134/80; PULSE 86
[2025-07-28 11:17] VITALS: BP 138/81; PULSE 86
[2025-07-28 11:27] VITALS: BP 132/75; PULSE 80
[2025-07-28 11:27] LABS: Collection Type, Urine Clean Catch
[2025-07-28 11:32] LABS: Basophils # (Auto) 0.1 Thou/mm3 (0.0-0.2); Basophils % (Auto) 0 % (0-2.5); Eosinophils # (Auto) 0.2 Thou/mm3 (0.0-0.5); Eosinophils % (Auto) 2 % (0-10); Hematocrit 32.8 % (36.0-46.0); Hemoglobin 11.5 g/dL (12.0-16.0); Immature Granulocytes Auto 0.04 Thou/mm3 (0.00-0.00); Lymphocytes # (Auto) 2.0 Thou/mm3 (1.0-4.8); Lymphocytes % (Auto) 18 % (10-50); Mean Corpuscular HGB Conc 35.1 g/dl (31.0-37.0); Mean Corpuscular Hemoglobin 33.3 pg (25.0-35.0); Mean Corpuscular Volume 95 fL (80-100); Monocytes # (Auto) 0.5 Thou/mm3 (0.0-0.8); Monocytes % (Auto) 5 % (0-12); Neutrophils # (Auto) 8.2 Thou/mm3 (1.8-7.7); Neutrophils % (Auto) 74 % (37-80); Nucleated Red Blood Cell # 0.00 Thou/mm3 (0.00-0.00); Nucleated Red Blood Cell % 0 /100 WBC (0); Platelet Count 103 Thou/mm3 (140-440); RDW Standard Deviation 47.5 fL (36.4-46.3); Red Blood Count 3.45 Miln/mm3 (4.00-5.20); White Blood Count 11.1 Thou/mm3 (3.6-11.0)
[2025-07-28 11:37] VITALS: BP 120/73; PULSE 87
[2025-07-28 11:46] LABS: Alanine Aminotransferase 12 U/L (10-49); Albumin, Serum 3.8 gm/dL (3.5-5.0); Albumin/Globulin Ratio 1.4 (1.2-2.2); Alkaline Phosphatase 149 U/L (46-116); Anion Gap 11 (7-16); Aspartate Amino Transferase 22 U/L (0-34); BUN/Creatinine Ratio 8 Ratio (12-20); Bilirubin,Total 0.2 mg/dL (0.3-1.2); Blood Urea Nitrogen 7 mg/dL (9-23); Calcium 9.4 mg/dL (8.3-10.6); Calcium (Corrected) 9.6 mg/dL (8.5-10.1); Carbon Dioxide 19.4 mMol/L (20.0-31.0); Chloride 109 mMol/L (98-107); Creatinine (Component) 0.9 mg/dL (0.6-1.3); Estimated Creatinine Clearance 88.5 mL/min (>60); Globulin 2.8 gm/dL (2.3-3.5); Glucose 95 mg/dL (74-106); Osmolality,Calculated 275 (275-295); Potassium 4.0 mMol/L (3.4-5.1); Sodium 139 mMol/L (136-145); Total Protein 6.6 gm/dL (5.7-8.2); Uric Acid 6.3 mg/dL (3.1-7.8); eGFR > 60 See Note
[2025-07-28 11:53] LABS: LDH (Lactate Dehydrogenase) 193 U/L (120-246)
[2025-07-28 12:09] LABS: Fibrinogen 538 mg/dL (175-375); INR 0.9 (0.9-1.3); Partial Thromboplastin Time 27.6 Seconds (22.0-36.0); Prothrombin Time 9.7 Seconds (9.0-12.2)
[2025-07-28 12:30] LABS: Bacteria,Urine 1+; Bilirubin,Urine Negative (Negative); Blood,Urine Trace (Negative); Clarity,Urine Clear (Clear/Hazy); Color,Urine Lt-Yellow (Lt Yel-Yel); Glucose, Urine Negative (Negative); Ketones,Urine Negative (Negative); Leukocyte Esterase,Urine Positive (Negative); Nitrite,Urine Negative (Negative); PH,Urine 6.0 (5.0-7.0); Protein,Urine Negative (Neg - Trace); RBC,Urine 1 /hpf (0-3); Specific Gravity,Urine 1.008 (1.001-1.035); Squamous Epithelial Cell,Urine 12 /hpf (0-5); Urobilinogen,Urine Negative mg/dL (0.0-1.0); WBC,Urine 2 /hpf (0-5)
[2025-07-28 15:07] LABS: Creatinine,Random Urine 43 mg/dL (30-125); Protein Total, Random Urine 17 mg/dL (1-14)
--- NOTE | 2025-07-28 17:14 | PC.NURSE ---
MD ON UNIT REVIEWING LABS, STATES SHE WANTS HER TO COME BACK TOMORROW FOR REPEAT LABS. MADE PHONE CALL TO PT TO HAVE HER RETURN FOR NST AND LABS TOMORROW. PT AGREES TO POC.
--- NOTE | 2025-07-28 17:20 | PD.EVENT ---
Documentation for date of: 07/28/25 Event Note Event Note: The patient is a 34-year-old -0-0-2 at 38 weeks who presented to triage after being evaluated the clinic with Nirali and had a couple of mildly elevated blood pressures in the office. Patient was seen in triage all blood pressures were in the 1 20-1 30s over 70 range. Patient denied headache scotomata or right upper quadrant pain. She was reporting some pressure but no painful contractions. The NST was reactive. The patient really did not want to be induced and wants to go natural. She does not want an epidural in labor. The patient was discharged home. Her labs did result later with a low platelet number of 103 and an elevated protein creatinine ratio of 0.39 which corresponds to approximately 480 mg in 24 hours. Patient was asymptomatic. The plan will be to return tomorrow 07/29/25 for a redraw of labs and a cervical exam. If patient's labs are still abnormal ,we will recommend induction of labor.
== END 2025-07-28 11:50 | disposition home or self-care (01) ==
PROVIDERS: Admitting Provider Obstetrics & Gynecology; Visit Provider Obstetrics & Gynecology
DX: Z34.83 Encounter for supervision of other normal pregnancy, third trimester (principal); Z36.89 Encounter for other specified antenatal screening; Z3A.38 38 weeks gestation of pregnancy
CPT/HCPCS: 36415; 59025; 59899; 80053; 81001; 82570; 83615; 84156; 84550; 85025; 85384; 85610; 85730

== ENCOUNTER 2025-07-29 10:24 | Inpatient (IN) | payer MEDICAID, SELFPAY ==
[2025-07-29] VITALS (62 sets, daily range): BP systolic 100–145; BP diastolic 56–91; PULSE 80–111; RESP 16–100; TEMP 36.8–37.2; O2SAT 94–100; BMI 28.2
[2025-07-29 11:23] LABS: Collection Type, Urine Clean Catch
[2025-07-29 11:28] LABS: Basophils # (Auto) 0.0 Thou/mm3 (0.0-0.2); Basophils % (Auto) 0 % (0-2.5); Eosinophils # (Auto) 0.1 Thou/mm3 (0.0-0.5); Eosinophils % (Auto) 1 % (0-10); Hematocrit 31.9 % (36.0-46.0); Hemoglobin 10.9 g/dL (12.0-16.0); Immature Granulocytes Auto 0.05 Thou/mm3 (0.00-0.00); Lymphocytes # (Auto) 1.5 Thou/mm3 (1.0-4.8); Lymphocytes % (Auto) 16 % (10-50); Mean Corpuscular HGB Conc 34.2 g/dl (31.0-37.0); Mean Corpuscular Hemoglobin 32.7 pg (25.0-35.0); Mean Corpuscular Volume 96 fL (80-100); Monocytes # (Auto) 0.3 Thou/mm3 (0.0-0.8); Monocytes % (Auto) 4 % (0-12); Neutrophils # (Auto) 7.3 Thou/mm3 (1.8-7.7); Neutrophils % (Auto) 78 % (37-80); Nucleated Red Blood Cell # 0.00 Thou/mm3 (0.00-0.00); Nucleated Red Blood Cell % 0 /100 WBC (0); Platelet Count 100 Thou/mm3 (140-440); RDW Standard Deviation 47.9 fL (36.4-46.3); Red Blood Count 3.33 Miln/mm3 (4.00-5.20); White Blood Count 9.3 Thou/mm3 (3.6-11.0)
[2025-07-29 11:31] LABS: Bacteria,Urine Rare; Bilirubin,Urine Negative (Negative); Blood,Urine Trace (Negative); Clarity,Urine Clear (Clear/Hazy); Color,Urine Lt-Yellow (Lt Yel-Yel); Culture Indicated,Urine Not Indicated; Glucose, Urine Negative (Negative); Ketones,Urine Negative (Negative); Leukocyte Esterase,Urine Positive (Negative); Nitrite,Urine Negative (Negative); PH,Urine 6.0 (5.0-7.0); Protein,Urine Negative (Neg - Trace); RBC,Urine 3 /hpf (0-3); Specific Gravity,Urine 1.017 (1.001-1.035); Squamous Epithelial Cell,Urine 4 /hpf (0-5); Urobilinogen,Urine Negative mg/dL (0.0-1.0); WBC,Urine 4 /hpf (0-5)
[2025-07-29 11:40] LABS: INR 0.9 (0.9-1.3); Partial Thromboplastin Time 27.9 Seconds (22.0-36.0); Prothrombin Time 10.0 Seconds (9.0-12.2)
[2025-07-29 12:10] LABS: Alanine Aminotransferase 13 U/L (10-49); Albumin, Serum 3.8 gm/dL (3.5-5.0); Alkaline Phosphatase 137 U/L (46-116); Anion Gap 12 (7-16); Aspartate Amino Transferase 24 U/L (0-34); BUN/Creatinine Ratio 10 Ratio (12-20); Bilirubin,Total 0.3 mg/dL (0.3-1.2); Blood Urea Nitrogen 9 mg/dL (9-23); Calcium 8.7 mg/dL (8.3-10.6); Calcium (Corrected) 8.9 mg/dL (8.5-10.1); Carbon Dioxide 21.2 mMol/L (20.0-31.0); Chloride 106 mMol/L (98-107); Creatinine (Component) 0.9 mg/dL (0.6-1.3); Estimated Creatinine Clearance 88.6 mL/min (>60); Glucose 99 mg/dL (74-106); LDH (Lactate Dehydrogenase) 209 U/L (120-246); Osmolality,Calculated 276 (275-295); Potassium 3.5 mMol/L (3.4-5.1); Sodium 139 mMol/L (136-145); Uric Acid 7.2 mg/dL (3.1-7.8); eGFR > 60 See Note
[2025-07-29 13:00] LABS: Albumin/Globulin Ratio 1.5 (1.2-2.2); Globulin 2.6 gm/dL (2.3-3.5); Total Protein 6.4 gm/dL (5.7-8.2)
[2025-07-29 14:03] LABS: Creatinine,Random Urine 125 mg/dL (30-125); Protein Total, Random Urine 32 mg/dL (1-14)
--- NOTE | 2025-07-29 14:18 | PD.LDHP ---
Documentation for date of: 07/29/25 OB Labor/Induct. HPI History of Present Illness Chief complaint: abnormal labs : 3 Para: 2 Term pregnancies: 2 pregnancies: 0 Living children: 2 History of Abortions: Spontaneous and Elective: 0 History of Vaginal deliveries: 2 History of sections: No History of : No ISAAC: 08/10/25 Gestational Age (weeks): 38 Gestational Age (days): 1 History of present illness: Patient presents for repeat labs, bp check. She was sent to triage from office yesterday for mild bp's- normotensive in triage, however urine p:c was 0.39, serum creat 0.9 and plt 103. Totally asymptomatic for PIH. She was instructed to return today for re-eval. No regular/painful ctx. No LOF. No vaginal bleeding. Normal movement. No FOY, vision changes or RUQ pain. History of Present Dating criteria: based on 1st trimester US only Adequate Care: Yes Abnormal ultrasound findings: Normal level 2 ultrasound 05/22/2025 [facility] Narrative: -0-0-2 history of 13 and 17 years ago without complications. Delivered in [place]. New father of baby who has 3 children, 2 boys and a girl. AMA on baby aspirin +MJ stopped with + test Labs Maternal Blood Type: O Pos Labs: Negative: Group Beta Strep Narrative: labs at [facility]: O+/antibody screen negative/rubella immune/RPR nonreactive/hepatitis B surface antigen negative/gonorrhea negative/chlamydia negative/urine culture negative/HIV negative/SMA negative/CF negative/hemoglobin A1c 5/hemoglobin 12/NIPT 46 XY Normal 1 hour glucose 129 Review of Systems Review of Systems Narrative Review of Systems: Review of Systems Systems Reviewed: All systems reviewed, normal except as documented Constitutional Constitutional: Denies body ache(s), Denies chills, Denies fever(s) and Denies headache(s) ENT Ears, Nose, Mouth, and Throat: Denies headache(s) and Denies vertigo Cardiovascular Cardiovascular: Denies chest pain, Denies palpitations, Denies dyspnea and Denies syncope Respiratory Respiratory: Denies cough, Denies dyspnea Gastrointestinal Gastrointestinal: Denies nausea and Denies vomiting Neurologic Neurologic: Denies convulsions, Denies headache(s), Denies other visual disturbances, Denies syncope and Denies vertigo Past Medical History Family History OTHER FAMILY HX: non contributory Surgical History SURGICAL: Negative Section Social History SOCIAL: . Good support. No tobacco/ETOH/illicit drug use. +MJ stopped with + test Past Medical History Comments PMH COMMENT: benign pmhx Meds Home Medications and Allergies Home Medications ?Medication ?Instructions ?Recorded ?Confirmed ?Type vits no.130-ferrous fum 1 tab PO QDAY 07/29/25 07/29/25 History 27 mg iron-folic acid 800 mcg tablet ( Vitamin) Allergies Allergy/AdvReac Type Severity Reaction Status Date / Time No Known Allergies Allergy Verified 07/29/25 12:17 OB Exam Physical Exam Vital signs: Temp Pulse Resp BP Pulse Ox 98.2 F 82 18 111/61 100 07/29/25 10:30 07/29/25 14:15 07/29/25 10:30 07/29/25 14:15 07/29/25 14:15 Narrative: General: well developed, well nourished, no acute distress, conversant Cardiac: normal heart rate Lungs: breathing without distress Abdomen: soft, gravid, non-tender, no rebound or guarding Extremities: no edema BLE Detailed Labor and Delivery Exam Dilation (cm): 0 Effacement (%): 0 Cervix position: posterior Presentation: Vertex Membranes: intact monitor accelerations: 15x15 monitor decelerations: None senior care variability: Moderate (11-25) OB Results Labs 07/29/25 10:50 07/29/25 10:50 Labs: Short CBC 07/29/25 Range/Units 10:50 WBC 9.3 (3.6-11.0) Thou/mm3 Hgb 10.9 L (12.0-16.0) g/dL Hct 31.9 L (36.0-46.0) % Plt Count 100 L (140-440) Thou/mm3 BMP 07/29/25 10:50 Sodium 139 Potassium 3.5 D Chloride 106 Carbon Dioxide 21.2 BUN 9 Creatinine 0.9 Glucose 99 Calcium 8.7 Liver Function 07/29/25 Range/Units 10:50 Total Bilirubin 0.3 (0.3-1.2) mg/dL AST 24 (0-34) U/L ALT 13 (10-49) U/L Alkaline Phosphatase 137 H (46-116) U/L Albumin 3.8 (3.5-5.0) gm/dL Urine 07/29/25 Range/Units 11:00 Urine Color Lt-Yellow (Lt Yel-Yel) Urine Clarity Clear (Clear/Hazy) Urine pH 6.0 (5.0-7.0) Ur Specific [place] 1.017 (1.001-1.035) Urine Protein Negative (Neg - Trace) Urine Glucose (UA) Negative (Negative) OB Assessment & Plan Assessment and Plan (1) Encounter for induction of labor: Status: Acute Assessment and plan: Maya is a 34yo with SIUP at 38&1wk with abnormal lab findings, plt 100 (was 103 yesterday) and creatinine 0.9. No other s/sx of PIH. Normotensive. Urine p:c 0.39 yesterday but 0.25 today. Normal LFTs. Technically does not meet criteria for specific PIH-related dx, but with these abnormal lab findings at full-term, most prudent course is IOL. SCE: closed/thick/high. Reassuring assessment overall. PMhx/PNC significant for: -Thrombocytopenia, plt 100 -Elevated serum creatinine, 0.9 -Hx of 2 prior svds > 10 years ago -Marijuana use until + test -PNC with DRU Ureña and Dr. Cage Plan: -Admit to L&D -Establish IV, routine labs -CEFM -Regular diet [id number]-lvav, then clear liquid diet in labor -Counseled/consented re: iol and -GBS status: negative -Will initiate IOL with: cytotec 25mcg PV Q4hr -Anticipate -Safe to proceed Rosa Elena Ramsay MD (2) Gestational thrombocytopenia: Status: Acute (3) Elevated serum creatinine: Status: Acute (4) Advanced maternal age (AMA) in : Status: Acute (5) Encounter for supervision of high risk in third trimester, antepartum: Status: Acute (2) Gestational thrombocytopenia Qualifiers: Trimester: third trimester Qualified Code(s): O99.113 - Other diseases of the blood and blood-forming organs and certain disorders involving the immune mechanism complicating , third trimester; D69.6 - Thrombocytopenia, unspecified
--- NOTE | 2025-07-29 14:33 | XR_ITS ---
Examination: Complete OB ultrasound greater than 14 weeks Date and time of exam: July 29, 2025, 1457 hours INDICATIONS: Labor evaluation Findings: Viable intrauterine single fetus with single amniotic sac presentation cephalic spine maternal left Cardiac motion 147 bpm Placenta anterior grade 2 Umbilical cord insertion seen Amniotic fluid index 7.7 cm Cervix 3.4 cm Ovaries obscured by bowel gas. Composite estimated gestational age based on BPD, head circumference, abdominal circumference, femur length is 37 weeks 5 days Estimated weight 3207 g. Survey of intracranial anatomy, spinal anatomy, abdominal anatomy, four-chamber heart performed with no abnormalities identified. Impression: Viable intrauterine gestation cephalic presentation.
[2025-07-29 17:19] LABS: Syphilis Nonreactive (Nonreactive)
[2025-07-29] MEDS: RINGERS LACTATED 1000 ML 1,000 ML 100 ML IV (18:16)
[2025-07-29 18:49] LABS: Amphetamine/Metham Scrn,Ur OB Negative (Negative); Benzoylecgonine Screen, Ur OB Negative (Negative); Opiate Screen,Urine OB Negative (Negative); THC Screen,Urine OB Negative (Negative)
[2025-07-30] VITALS (12 sets, daily range): BP systolic 120–142; BP diastolic 66–90; PULSE 77–101; RESP 16–19; TEMP 36.4–36.9; O2SAT 97–99
[2025-07-30] MEDS: fentaNYL CIT INJ 50 mCg/ML AMP 2ML 100 MCG IVP (03:47)
[2025-07-30] MEDS: RINGERS LACTATED 1000 ML 1,000 ML 100 ML IV (03:55)
[2025-07-30] MEDS: OXYTOCIN in NS 20 units 20 UNIT/1,000 ML BAG 125 UNIT IV (05:02)
[2025-07-30] MEDS: METHYLERGONOVINE INJ 0.2 MG/ML VIAL IM (05:09)
[2025-07-30] MEDS: BENZO/LANO/ALOE (Dermoplast) 60 GM CAN 1 SPRAY TOP (05:18)
[2025-07-30] MEDS: IBUPROFEN TAB 400 MG TABLET 800 MG PO ×2 (05:19→20:36)
[2025-07-30] MEDS: DOCUSATE SOD 100 MG CAPSULE PO ×2 (09:44→20:36)
--- NOTE | 2025-07-30 11:19 | OBDSUM_ITS ---
Data (Siegel) Data Hx Section: No : 3 Term: 2 : 0 Livin Abortions: Spontaneous & Theraputic: 0 Delivery Data (Siegel) Labor Data Initiation of labor: Induction Induction/Augmentation Agent: Cytotec-Vaginal ROM date: 07/30/25 ROM time: 03:07 Amniotic membrane rupture type: Spontaneous Amniotic fluid description: Clear Delivery Data Onset of labor date: 07/30/25 Onset of labor time: 03:05 Complete dilation date: 07/30/25 Complete dilation time: 04:49 delivery date: 07/30/25 [place] delivery time: 04:55 Placenta delivery date: 07/30/25 Placenta delivery time: 05:00 Stage 1 total time: Labor - Stage 1 Duration 1 hours and 44 minutes Delivered by: Rosa Elena Ramsay Delivery nurse: Mike Brumfield RN [place] nurse: Marycarmen Erickson RN Analyst [employer]etitive Intelligence at delivery: No Support person(s) at delivery: FOB Delivery Method Delivery method: Normal Vaginal Delivery Presentation: Vertex Anesthesia Type Anesthesia Type: None Placenta Placenta delivery description: Spontaneous Cord blood sent to lab: Yes cord blood collection: Cord Blood Type Episiotomy Episiotomy description: None EBL Estimated blood loss (ml): 250 Umbilical Cord cord description: 3 Vessels Additional Procedures Maya is a 34yo [id number] s/p uncomplicated at 38&2wk after undergoing IOL for abnormal labs (serum creatinine 0.9, plt 100), delivering at 0455 on 07/30/2025. On presentation, SCE was cl/th/h. She progressed with 2 doses of cytotec and then AROM to C/C/0 at which point she began pushing. She declined epidural. With good maternal pushing efforts, infant's head delivered OA and restituted HOANG. Left anterior shoulder delivered easily followed by posterior shoulder and corpus. had spontaneous cry and was vigorous. Apgars 9/9. placed on maternal abdomen where nose/mouth were suctioned and dried/stimulated. After approximately 1 minute, cord was clamped x2 and cut by FOB. Cord blood collected for typing. With fundal massage and cord traction, placenta delivered spontaneously and intact with 3 vessel centrally inserted cord. Bimanual massage performed and IV pitocin given per protocol with fundus then firm at u-2cm and hemostasis noted. Inspection of perineum and vagina revealed no lacerations. All counts correct x2. Mom and infant were doing well when I left the room. Rosa Elena Ramsay MD Complications Complications: none Data (Siegel) Data order: 1 [place]'s gender: Male weight (gms): 3160 g Weight (pounds): 6 lbs and 15.5 ozs 1 minute: 9 5 minutes: 9
--- NOTE | 2025-07-30 12:51 | PC.NURSE ---
1258: RN CALLED AND SPOKE TO LAB FOR UNDRAWN CBC LAB STAFF BISI REPORTS THEY ARE SHORT STAFFED AND WILL SEND SOMEONE UP TO DRAW CBC DARRELL
[2025-07-30 13:39] LABS: Basophils # (Auto) 0.0 Thou/mm3 (0.0-0.2); Basophils % (Auto) 0 % (0-2.5); Eosinophils # (Auto) 0.0 Thou/mm3 (0.0-0.5); Eosinophils % (Auto) 0 % (0-10); Hematocrit 31.3 % (36.0-46.0); Hemoglobin 10.7 g/dL (12.0-16.0); Immature Granulocytes Auto 0.07 Thou/mm3 (0.00-0.00); Lymphocytes # (Auto) 1.2 Thou/mm3 (1.0-4.8); Lymphocytes % (Auto) 8 % (10-50); Mean Corpuscular HGB Conc 34.2 g/dl (31.0-37.0); Mean Corpuscular Hemoglobin 32.7 pg (25.0-35.0); Mean Corpuscular Volume 96 fL (80-100); Monocytes # (Auto) 0.5 Thou/mm3 (0.0-0.8); Monocytes % (Auto) 3 % (0-12); Neutrophils # (Auto) 14.3 Thou/mm3 (1.8-7.7); Neutrophils % (Auto) 88 % (37-80); Nucleated Red Blood Cell # 0.00 Thou/mm3 (0.00-0.00); Nucleated Red Blood Cell % 0 /100 WBC (0); Platelet Count 89 Thou/mm3 (140-440); RDW Standard Deviation 47.5 fL (36.4-46.3); Red Blood Count 3.27 Miln/mm3 (4.00-5.20); White Blood Count 16.2 Thou/mm3 (3.6-11.0)
[2025-07-31 03:50] VITALS: BP 124/82; PULSE 85; RESP 16; TEMP 36.6; O2SAT 99
[2025-07-31 05:58] LABS: Platelet Count 97 Thou/mm3 (140-440)
[2025-07-31 08:00] VITALS: BP 120/75; PULSE 97; RESP 16; TEMP 36.8; O2SAT 99
[2025-07-31] MEDS: DOCUSATE SOD 100 MG CAPSULE PO (08:05)
--- NOTE | 2025-07-31 10:55 | PC.SS ---
CORRECTIONAL PROGRAM SPECIALIST conducted bedside contact with the patient to address nursing referral indicating patient was late to care and engaged in THC use.? CORRECTIONAL PROGRAM SPECIALIST introduced self and role.? At bedside with patient was TEO, Genaro Barlow.? Patient gave permission for FOB to be present during discussion.? CORRECTIONAL PROGRAM SPECIALIST reviewed basis of referral.? Patient confirmed late to care due to [facility] ([place]) requesting that patient schedule blood work and participate in parenting classes prior to initial OB appointment.? Patient shared use of recreational THC prior to confirmation.? Patient ceased use of THC upon confirmation.? Infant, Genaro; was delivered naturally and is the patient?s 3rd child.? Patient plans on combo feeding the infant.? OB services conducted with Nirali Ureña.? Patient is receiving WIC, SNAP and TANF.? Patient denies history of alcohol/drug abuse.? Patient denies CWS intervention.? Patient denies episodes of domestic violence.? Patient denies possessing a history of mental health, reports no current possession of depression or anxiety.? Patient has access to appropriate supplies and equipment; to include a car seat.? FOB will provide transportation upon discharge.? Patient describes possessing support system consisting of FOB and extended family.? CORRECTIONAL PROGRAM SPECIALIST provided the patient with community resources to include Parenting Network and Warm Line.? No further intervention required at this time, manager social media will be available to address any further concerns.? CORRECTIONAL PROGRAM SPECIALIST updated bedside nurse.?
== END 2025-07-31 17:10 | disposition home or self-care (01) | DRG 560 ==
LOC: S4SX 07-30 06:12 → S4NX 07-30 07:14
PROVIDERS: Obstetrics & Gynecology; Admitting Provider Advanced Practice Midwife; Visit Provider Advanced Practice Midwife
DX: O99.12 Other diseases of the blood and blood-forming organs and certain disorders involving the immune mechanism complicating childbirth (principal); D69.59 Other secondary thrombocytopenia; Z37.0 Single live birth; Z3A.38 38 weeks gestation of pregnancy
CPT/HCPCS: 36415; 59025; 59409; 76805; 80053; 80307; 81001; 82570; 83615; 84156; 84550; 85025; 85049; 85610; 85730; 86780; 86850; 86900; 86901; 94762; J2210; J2590; J3010; J7120; A9270

== ENCOUNTER 2025-08-26 11:29 | Outpatient (AMB) | payer MEDICAID, SELFPAY ==
[2025-08-26 11:38] VITALS: BP 111/70; PULSE 96; RESP 18; TEMP 36.3; O2SAT 97; BMI 24.2
--- NOTE | 2025-08-26 11:38 | AMBOBPPN_ITS ---
Vital Signs 08/26/25 11:38 Height 1.65 m Height Method Stated Weight 65.998 kg Weight Measurement Method Standing Scale BMI 24.2 BP 111/70 Blood Pressure Source Automatic Cuff Blood Pressure Location Left Upper Arm Position Sitting Respiration 18 Pulse 96 Pulse Source Monitor Temp 97.4 F Temp Source Oral Pulse Oximetry (%) 97 Oxygen Delivery Method Room Air Allergies/Home Meds Allergies & Medications Allergies No Known Allergies Allergy (Verified 08/26/25 11:40) Medication Reconciliation vits no.130-ferrous fum 27 mg iron-folic acid 800 mcg tablet ( Vitamin) 1 tab PO QDAY 07/29/25 [History Confirmed 08/26/25] norethindrone (contraceptive) 0.35 mg tablet (Reba) 0.35 mg PO QDAY #84 tabs 08/26/25 [Rx] Intake Visit Data Collection New Patient or Established: Established Patient (seen at [facility] within 3 years) Reason for Visit:: FOLLOW UP Seen by Clinical Staff ONLY (RN/MA): No Tapper Operator Required: No Do You Feel Safe at Home: Yes Authorities Contacted: N/A PCP or OBGYN visit in last 3 months: Yes Hx Now: No Are you currently on any form of Control: No Last menstrual period: 11/03/24 Pain Present Currently: No Pain Scale Used: El-Zhang/Numerical Pain scale:: 0 Smoking Status Smoking Status: Never smoker Immunizations Flu Vaccine in the Last 12 Months: No Flu Vaccine Exclusion 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: 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: Past Medical History Past Medical History: No Hx Neurological Disorders, No Hx Cardiac Disorders, No Hx Cancer, No Hx Blood Disorders, No Hx Anemia, No Hx Gastrointestinal Disorders, No Hx Renal Disease, Yes Hx Diabetes Mellitus Type 1 (father of pt, sister of pt) and No Hx Diabetes Mellitus Type 2 Questionnaires Covid-19 Vaccine Questionnaire Has patient been vacinated for Covid-19 Have you been vacinated for Covid-19: No Social History Living Situation History Lives With: Children Housing: House Housing Other:: Has 17 and 13 year old girls/ FOB has 3 kids Tobacco History Smoking Status: Never smoker Second Hand Smoke Exposure: No Alcohol History Alcohol Intake: Former Alcohol Intake Frequency: holidays/special occasions only Substance Use History Substance Use: +MJ stopped with + test Domestic Abuse History Do You Feel Safe at Home: Yes EPDS - PP Depression Screening [place] Pospartum Depression Screen I have been able to laugh and see the funny side of things: (0) As much as I always could I have looked forward with enjoyment to things: (0) As much as I ever did I have blamed myself unnecessarily when things went wrong: (0) No, never I have been anxious or worried for no good reason: (0) No, not at all I have felt scared or panicky for no very good reason: (0) No, not at all Things have been getting on top of me: (0) No, I have been coping as well as syed r I have been so unhappy that I have had difficulty sleeping: (0) No, not at all I have felt sad or miserable: (0) No, not at all I have been so unhappy that I have been crying: (0) No, never The thought of harming myself has occurred to me: (0) Never EPDS completed yes Care OB Visit Log OB Flowsheet Initial Weight: Not Recorded Date -?-?-?-?-?-?-?-?-?-?-?-?- EGA Weight BP Alb Glu CTX Pres Fundal ht FHR Mov Dilation Station Effacement Hx Notes Visit Note 03/17/25 -?-?-?-?-?-?-?-?-?-?-?-?- 19w 0d 58.57 kg 116/76 20 145 active +FM No UCs or LOF Came from [facility] with only a proof of . Ordered all PNC labs, NIPT and Level II US 04/14/25 -?-?-?-?-?-?-?-?-?-?-?-?- 23w 0d 97.182 kg 97/63 active Reviewed all labs and NIPT with the patient. Need structural survey and this will be authorized. No vaginal bleeding, or loss of fluids good movement 05/16/25 -?-?-?-?-?-?-?-?-?-?-?-?- 27w 4d 67.642 kg 122/78 occasional 28 149 active Patient reports good movement. She reports frequent cramping and pressure while at work. No vaginal bleeding or loss of fluids. Patient had a note for decreased lifting and bending and she still having pressure and cramping at work. Off work at this time. 06/13/25 -?-?-?-?-?-?-?-?-?-?-?-?- 31w 4d 68.549 kg 131/78 occasional 32 145 active Good motion no contractions or loss of fluids. Present with father the baby. Patient is off work doing well. 07/01/25 -?-?-?-?-?-?-?-?-?-?-?--?- 34w 1d 72.178 kg 117/85 occasional cephalic 34 145 active Good movement. Denies contractions, leaking, bleeding Follow-up MFM appointment July 08. Discussed kick count. labor precautions. Increase fluids. Continue vitamins. Patient declined Tdap 07/18/25 -?-?-?-?-?-?-?-?-?-?-?-?- 36w 4d 73.992 kg 123/89 occasional cephalic 36 145 active Fetus active. Denies leaking, bleeding, contractions GBS today. Discussed labor precautions. Kick count reviewed. Discussed danger signs symptoms ER precautions. Return in a week OB check 07/28/25 -?-?-?-?-?-?-?-?-?-?-?-?- 38w 0d 75.977 kg 142/93 occasional cephalic 38 145 active Reports good movement. Denies leaking, bleeding, contractions. Denies headache, blurred vision, epigastric pain. Reflexes were 2+ no clonus. Protein in the urine was negative and negative for nitrites Discussed PIH signs symptoms and precautions. Check blood pressure. Discussed labor precautions and kick count. I sent patient to labor and delivery for PIH workup. Return in week OB check ISAAC Calculator Estimated Delivery Date Method Current WG Current Estimate 08/11/25 LMP (Certain) 42w 1d Other Estimates 08/10/25 Ultrasound #1 42w 2d 08/11/25 Ultrasound #2 42w 1d 08/11/25 Manual 42w 1d final isaac: 07/28 01/19, EFW 50% Expected Delivery Route/Plan -0-0-2 history of 11 and 15 years ago without complications. Delivered in [place]. New father of baby who has 3 children, 2 boys and a girl. Specific Issue/Plans AMA on baby aspirin labs at [facility]: O+/antibody screen negative/rubella immune/RPR nonreactive/hepatitis B surface antigen negative/gonorrhea negative/chlamydia negative/urine culture negative/HIV negative/SMA negative/CF negative/hemoglobin A1c 5/hemoglobin 12/NIPT 46 XY Normal level 2 ultrasound 05/22/2025 [facility] Normal 1 hour glucose 129 Notes Visit Date: 07/28/25 Last Updated by: Nirali Ureña CNM GBS- 07/19/25 Visit Date: 07/01/25 Last Updated by: Nirali Ureña CNM OB panel: O+,abs-, rpr;;nr, rub imm, hbsag-, hiv-, gc/ct- 1 hr gtt wnl, HC-. NIPT/carrier screen- Visit Date: 06/13/25 Last Updated by: Luisa Cage ([facility] Clinic)MD Patient has a 17-year-old and 13-year-old daughter. Her new has 3 children. Reviewed normal anatomy scan from [facility] from 05/22/2025 with patient and her . 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 She is having cramping and pressure at work. Awaiting level 2 ultrasound at [facility] 05/22/2025. Labs reviewed with a normal glucose RPR is negative normal hemoglobin. 1 hour glucose was 129. 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 Visit Date: 03/17/25 Last Updated by: Luisa Cage ([facility])MD AMA: Susan QUINTANA, offered NIPT and will order Level II US HPI Interval History: This is a 34-year-old 3 para 3 for 4-week . Patient a baby boy weighing 6 pounds 15 ounces. And she is breast and bottlefeeding. She is happy. Denies any depression. She reports that she has good family support. She is not sexually active. The siblings are adjusting. Patient is unsure about control she thinks she might want to start control pills. And her last Pap was over 5 years ago a vaginal July 30, 2025. She was induction at 38 weeks 1 day for low platelets and elevated blood pressures. 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 Lungs clear no wheezes. Abdomen is soft nonten rosie. Uterus well involuted. Perineum is intact no lacerations. No swelling. Small lochia. Negative Homans' sign. 2+ DTRs. No edema no swelling. Breasts are soft Office Procedures [facility] LOC & Office Proc's Nursing/Assessment Patient Status: Established Patient OB Clinic Nursing Assessment: Medication Reconciliation, Update PMH in EMR and Vital Signs OB Clinic Coordination of Care: Complex Care and Chronic Disease 1-5, Consen t,records obtained, informed consent, Education Simp Pt/Fam, 1 Ins Authorization, Lab and Imaging orders, Results/Orders obtained and Staff clarify orders Established Patient Charge Established Patient Point Assignment: 120 Established Patient Point Charge: EP Level 4 (120-155) Assessment & Plan Diagnosis / Problem List (1) 6 weeks follow-up: Status: Acute (2) Counseling for control, oral contraceptives: Status: Acute Plan Yue x 6. She can start today. Condoms for 2 weeks. Reviewed method and side effects and compliance. Schedule patient for Pap smear. Okay to walk for exercise. And yoga and stretching is fine to. Continue prenatals and discussed frequent feeds and increasing fluids to help with milk supply. So patient return in 4 weeks for Pap Care Reviewed delivery summary and any complications: Yes Uterus involuted to: 3 below Perineal / incision healing noted: Yes Screened for depression: Yes Depression counseling provided: No Discussed family planning & contraception: Yes Contraception planned: pills Counseling on safe resumption of sexual activity: Yes Counseling on gradual excercise: Yes Discussed and concerns (describe), provided support: Yes Referred to account installation specialist: No Counseled on good nutrition, hydration, and self care: Yes Reviewed vaccine status: Yes Chronic & current problems reconciled on problem list: Yes Infant care discussed; questions answered: feeding Follow up: routine/prn Additional counseling & anticipatory guidance provided: Reba x6, start today, condom x 2 week. review mehtod and side effedt. RTC for pap
== END 2025-08-26 12:18 | disposition home or self-care (01) ==
LOC: HODSOBC 11:29
PROVIDERS: Supervising Provider Advanced Practice Midwife; Visit Provider Advanced Practice Midwife
DX: Z39.2 Encounter for routine postpartum follow-up (principal); Z39.1 Encounter for care and examination of lactating mother
CPT/HCPCS: 99214; G0463